=== PATIENT | male | born 1995 | race Caucasian/White ===

== ENCOUNTER 2021-04-26 12:36 | Emergency (ER) | payer BC ==
[2021-04-26] MEDS ORDERED: Ibuprofen 600 MG Tab PO ONE (13:16)
[2021-04-26] MEDS ORDERED: Bacitracin Oint 1 GM U/D Packet TOP ONE (13:21)
== END 2021-04-26 14:26 | disposition home or self-care (01) ==
LOC: JP.ED 12:36
DX: T23.292A Burn of second degree of multiple sites of left wrist and hand, initial encounter (principal); Z88.1 Allergy status to other antibiotic agents; Z88.0 Allergy status to penicillin; Z88.2 Allergy status to sulfonamides; X11.8XXA Contact with other hot tap-water, initial encounter
CPT/HCPCS: 16020; 99283; A9270